=== PATIENT | female | born 1990 | race Caucasian/White ===

== ENCOUNTER → 2017-05-07 | Outpatient (CLI) | payer OTHER ==
[~2017-05-07] MED LIST: BIRTH CONTROL; LAMO100 PO; Xanax0.5 MG
[2017-05-07 14:32] LABS: Specimen Source CERVIX
[2017-05-08 09:22] LABS: Source Cervix
[2017-05-09 12:17] LABS: HPV Genotype 16 Not Detected (NOTDET); HPV Genotype 18 Not Detected (NOTDET)
[2017-05-16 19:05] LABS: HPV High Risk Other Detected (NOTDET)
== END ==
LOC: OLS 14:25
PROVIDERS: Nurse Practitioner Women's Health
DX: Z11.3 Encounter for screening for infections with a predominantly sexual mode of transmission (principal); R36.9 Urethral discharge, unspecified; Z20.2 Contact with and (suspected) exposure to infections with a predominantly sexual mode of transmission
CPT/HCPCS: 87491; 87591; 87624; G0123

== ENCOUNTER → 2018-05-08 | Outpatient (CLI) | payer OTHER ==
[2018-05-10 15:06] LABS: HPV 16 Negative (Negative); HPV 18 Negative (Negative); HPV OTHER HR TYPES Positive (Negative)
== END ==
LOC: LAB SHORT 17:33 → LAB 17:33
PROVIDERS: Nurse Practitioner Women's Health
DX: Z12.4 Encounter for screening for malignant neoplasm of cervix (principal)
CPT/HCPCS: 87624; 87625; G0123

== ENCOUNTER → 2018-09-18 | Outpatient (CLI) | payer OTHER | END | disposition home or self-care (01) | LOC: LAB 16:25 → LAB SHORT 16:25 | DX: N89.8 Other specified noninflammatory disorders of vagina (principal) | CPT/HCPCS: 87070; 87205 ==

== ENCOUNTER → 2018-09-30 | Outpatient (CLI) | payer OTHER | END | disposition home or self-care (01) | LOC: LAB SHORT 17:15 → LAB 17:15 | DX: N89.8 Other specified noninflammatory disorders of vagina (principal) | CPT/HCPCS: 87070; 87147; 87205 ==

== ENCOUNTER → 2018-10-04 | Outpatient (CLI) | payer OTHER | END | disposition home or self-care (01) | LOC: LAB SHORT 16:41 → LAB 16:41 | DX: L08.9 Local infection of the skin and subcutaneous tissue, unspecified (principal); K13.0 Diseases of lips | CPT/HCPCS: 87070; 87077; 87186; 87205 ==

== ENCOUNTER → 2018-10-15 | Outpatient (CLI) | payer OTHER ==
[2018-10-16 07:13] LABS: Candida species (DNA Probe) Negative (NEGATIVE); G. vaginalis (DNA Probe) Negative (NEGATIVE); T. vaginalis (DNA Probe) Negative (NEGATIVE)
== END | disposition home or self-care (01) ==
LOC: LAB SHORT 17:36 → LAB 17:36
PROVIDERS: Nurse Practitioner Women's Health
DX: N94.6 Dysmenorrhea, unspecified (principal); N89.8 Other specified noninflammatory disorders of vagina; R87.810 Cervical high risk human papillomavirus (HPV) DNA test positive
CPT/HCPCS: 87480; 87510; 87660

== ENCOUNTER → 2020-05-26 | Outpatient (CLI) | payer OTHER ==
[~2020-05-26] MED LIST changes: +ACYCLOVIR400 MG PO; +FOLI1 PO; +LAMOTRIGINE200 MG PO; +MULTI-VITAMIN1 EAC2 PO; +Nitrofurantoin100 M1 PO; +PRENATAL VITAMIN PO; +QUET100 PO; +VALA500 PO; +XULANE PATCH1 EAC1 TD
[2020-06-01 15:11] LABS: HPV 16 Negative (Negative); HPV 18 Negative (Negative); HPV OTHER HR TYPES Positive (Negative)
== END ==
LOC: LAB SHORT 19:01 → LAB 19:01
PROVIDERS: Obstetrics & Gynecology
DX: Z01.419 Encounter for gynecological examination (general) (routine) without abnormal findings (principal)
CPT/HCPCS: 87624; 87625; G0123

== ENCOUNTER → 2020-06-08 | Outpatient (CLI) | payer OTHER | END | disposition home or self-care (01) | LOC: PLD 07:55 → LAB SHORT 07:55 | DX: N87.9 Dysplasia of cervix uteri, unspecified (principal) | CPT/HCPCS: 88305 ==

== ENCOUNTER 2020-06-21 06:33 | Day surgery (SDC) | payer OTHER ==
[~2020-06-21] VITALS: Ht 157.5 cm; Wt 57.5 kg
[~2020-06-21 06:33] MED LIST changes: -ACYCLOVIR400 MG PO; -LAMOTRIGINE200 MG PO; -MULTI-VITAMIN1 EAC2 PO; -Nitrofurantoin100 M1 PO; -XULANE PATCH1 EAC1 TD
[2020-06-21] MEDS ORDERED: MULTI-VITAMIN1 EAC2 PO (07:14)
[2020-06-21] MEDS ORDERED: XULANE PATCH1 EAC1 TD (07:14)
--- NOTE | 2020-06-21 07:38 | NUR ---
PT AMBULATES TO DAY SURGERY c STEADY GAIT. URINE SAMPLE PROVIDED, PREG NEG. History, Chart, Medications and Allergies reviewed before start of procedure. Lungs clear T/O to Auscultation. Patient confirms NPO status and agrees with scheduled surgery. Patient reports completing Chlorhexadine shower X2 prior to admission to hospital.
--- NOTE | 2020-06-21 12:03 | NUR ---
Patient up to Ambulate independently. Gait steady. Discharge instructions reviewed with patient. Patient verbalizes understanding. Copy given to patient to take home. History, Chart, Medications and Allergies reviewed before start of procedure.Patient States Post-Procedure ride home has been arranged. Discharged via wheelchair to private car for ride home.
== END 2020-06-21 12:30 | disposition home or self-care (01) ==
LOC: ORSCMMR 06:33 → ORD 08:30 → ORSCMMR 12:30
PROVIDERS: Obstetrics & Gynecology
PROC: 0UT64ZZ Resection of Left Fallopian Tube, Percutaneous Endoscopic Approach (ICD-10-PCS; principal; 2020-06-21 08:30)
PROC: 0U5F4ZZ Destruction of Cul-de-sac, Percutaneous Endoscopic Approach (ICD-10-PCS; principal; 2020-06-21 08:30)
PROC: 0UT14ZZ Resection of Left Ovary, Percutaneous Endoscopic Approach (ICD-10-PCS; principal; 2020-06-21 08:30)
DX: D27.1 Benign neoplasm of left ovary (principal); N80.1 Endometriosis of ovary; I10 Essential (primary) hypertension; K21.9 Gastro-esophageal reflux disease without esophagitis; Z79.899 Other long term (current) drug therapy
CPT/HCPCS: 88305; A9270; J0171; J1100; J1885; J2250; J2405; J2704; J2710; J3010; J7120

== ENCOUNTER → 2020-09-20 | Outpatient (CLI) | payer OTHER ==
[~2020-09-20] MED LIST changes: +ACYCLOVIR400 MG PO; +LAMOTRIGINE200 MG PO; +MULTI-VITAMIN1 EAC2 PO; +Nitrofurantoin100 M1 PO; +XULANE PATCH1 EAC1 TD
== END ==
LOC: LAB SHORT 12:21 → LAB 12:21
DX: R31.9 Hematuria, unspecified (principal)
CPT/HCPCS: 87077; 87086; 87186

== ENCOUNTER 2020-09-24 16:18 | Emergency (ER) | payer OTHER ==
[~2020-09-24] VITALS: Ht 157.5 cm; Wt 57.6 kg
[~2020-09-24 16:18] MED LIST changes: -ACYCLOVIR400 MG PO; -LAMOTRIGINE200 MG PO; -Nitrofurantoin100 M1 PO
[2020-09-24 17:27] LABS: BASOPHILS ABSOLUTE AUTO 0.01 K/mm3 (0.00-0.23); BASOPHILS PERCENT AUTO 0 % (0-2); EOSINOPHILS PERCENT AUTO 0 % (0-6); Hematocrit 40.1 % (33.0-51.0); Hemoglobin 13.7 g/dL (11.5-16.0); IMMATURE GRAN ABSOLUTE AUTO 0.02 K/mm3 (0.00-0.10); IMMATURE GRAN PERCENT AUTO 0 % (0-1); LYMPHOCYTES PERCENT AUTO 25 % (21-46); MONOCYTES ABSOLUTE AUTO 0.47 K/mm3 (0.16-1.47); MONOCYTES PERCENT AUTO 6 % (4-13); Mean Corpuscular HGB 31.4 pg (26.0-34.0); Mean Corpuscular HGB Conc 34.2 g/dL (31.5-36.5); Mean Corpuscular Volume 92 fL (80-100); Mean Platelet Volume 10.3 fL (9.1-12.4); NEUTROPHILS ABSOLUTE AUTO 5.58 K/mm3 (1.96-9.15); NEUTROPHILS PERCENT AUTO 69 % (41-73); Platelet Count 309 K/mm3 (150-400); RDW Standard Deviation 37.7 fL (35.1-46.3); Red Blood Cell Count 4.36 M/mm3 (3.80-5.20); White Blood Cell Count 8.08 K/mm3 (4.00-11.30)
[2020-09-24 17:51] LABS: Alanine Aminotransfer (ALT/SGP 18 U/L (12-78); Alk Phos 60 U/L (50-136); Anion Gap 5 mmol/L (6-16); Aspartate Aminotrans (AST/SGOT 12 U/L (12-37); Bilirubin, Total 0.5 mg/dL (0.1-1.0); Blood Urea Nitrogen 10 mg/dL (8-24); Bun/Creatinine Ratio 12.6 (12.0-20.0); CO2, Blood 27 mmol/L (21-32); Calcium, Blood 9.2 mg/dL (8.5-10.1); Chloride, Blood 107 mmol/L (98-108); Globulin, Blood 4.1 g/dL (2.2-4.0); Glomerular Filtration Rate >60 (60-); Glucose, Blood 82 mg/dL (70-99); Potassium, Blood 3.8 mmol/L (3.5-5.5); Sodium, Blood 139 mmol/L (136-145); Total Protein, Blood 8.1 g/dL (6.4-8.2)
[2020-09-24] MEDS ORDERED: ACYCLOVIR400 MG PO (19:11)
[2020-09-24] MEDS ORDERED: LAMOTRIGINE200 MG PO (19:11)
[2020-09-24] MEDS ORDERED: Nitrofurantoin100 M1 PO (19:11)
[2020-09-24 19:13] LABS: Source, Urine Clean Catch
[2020-09-24 19:27] LABS: Appearance, Urine Cloudy (Clear); Bilirubin, Urine Neg (Neg); Blood, Urine Neg (Neg); Color, Urine Yellow (P-Yellow); Glucose Qualitative, Urine Neg (Neg); Ketones, Urine 4+ (Neg); Leukocyte Esterase, Urine 1+ (Neg); Nitrite, Urine Neg (Neg); Protein, Urine 1+ (Neg); Urobilinogen, Urine NORM (Normal)
[2020-09-24 19:52] LABS: Bacteria Many /hpf; Red Blood Cells, Urine Not Seen /hpf (0-2); Squamous Epithelial Cells Many /hpf (Few)
== END 2020-09-24 20:44 | disposition home or self-care (01) ==
LOC: ER 16:18
PROVIDERS: Physician Assistant
DX: R10.9 Unspecified abdominal pain (principal); F17.200 Nicotine dependence, unspecified, uncomplicated; Z79.899 Other long term (current) drug therapy
CPT/HCPCS: 36415; 80053; 81001; 83690; 84702; 85025; 87086; 99284

== ENCOUNTER 2021-06-15 13:19 | Day surgery (SDC) | payer OTHER ==
[~2021-06-15] VITALS: Ht 157.5 cm; Wt 53.8 kg
[~2021-06-15 13:19] MED LIST changes: +ACYCLOVIR400 MG PO; +LAMOTRIGINE200 MG PO; +Nitrofurantoin100 M1 PO
[2021-06-15] MEDS ORDERED: OMEP20ER (14:02)
[2021-06-15] MEDS ORDERED: MULTI-VITAMIN1 EAC2 (14:03)
[2021-06-15] MEDS ORDERED: LINZESS145 MCG (14:03)
[2021-06-15] MEDS ORDERED: BRINTELLIX10 MG (14:04)
--- NOTE | 2021-06-15 16:00 | NUR ---
06/15/21 1559 Estefany Gleason PROCEDURE WAS CANCELLED BY [facility] COMPUTER SUPPORT ANALYST DUE TO PT REPORTING TO PRE-OP NURSE THAT SHE DID NOT FEEL SAFE AT HOME WITH [employer] WHO IS ALSO HER TRANSPORTATION HOME. [facility] COMPUTER SUPPORT ANALYST SAYS THAT PT HAS NOTIIFIED POLICE AND IS WAITING FOR A RETURN CALL WHERE THEY WILL BE SENDING OVER AN OFFICER TO INFORM THE CAREGIVER THAT HE IS TO NOT GO BACK TO THE RESIDENCE. THE COMPUTER SUPPORT ANALYST STATES THAT SHE WILL RETURN AND TRANSPORT THE PATIENT HOME INSURE SHE IS SAFE INSIDE. AT THIS TIME DR SLATER IN NOTIFIED AND HE GOES IN TO SEE THE PATIENT AND INSTRUCTS HER TO CALL THE OFFICE TO RESCHEDULE.
== END 2021-06-15 17:20 | disposition home or self-care (01) ==
LOC: ORSCSDS 13:19
DX: K21.9 Gastro-esophageal reflux disease without esophagitis (principal); K59.04 Chronic idiopathic constipation; Z53.9 Procedure and treatment not carried out, unspecified reason
CPT/HCPCS: J2704; J7120

== ENCOUNTER 2021-07-01 08:23 | Day surgery (SDC) | payer OTHER ==
[~2021-07-01] VITALS: Ht 157.5 cm; Wt 54.8 kg
[~2021-07-01 08:23] MED LIST changes: +BRINTELLIX10 MG; +LINZESS145 MCG; +MULTI-VITAMIN1 EAC2; +OMEP20ER
[2021-07-01] MEDS ORDERED: FISH OIL GUMMI1 EAC1 PO (09:34)
== END 2021-07-01 10:48 | disposition home or self-care (01) ==
LOC: ORSCSDS 08:23
PROVIDERS: Internal Medicine Gastroenterology
PROC: 0DB68ZX Excision of Stomach, Via Natural or Artificial Opening Endoscopic, Diagnostic (ICD-10-PCS; principal; 2021-07-01 09:45)
PROC: 0DB98ZX Excision of Duodenum, Via Natural or Artificial Opening Endoscopic, Diagnostic (ICD-10-PCS; principal; 2021-07-01 09:45)
PROC: 0DB58ZX Excision of Esophagus, Via Natural or Artificial Opening Endoscopic, Diagnostic (ICD-10-PCS; principal; 2021-07-01 09:45)
DX: K21.9 Gastro-esophageal reflux disease without esophagitis (principal); K58.1 Irritable bowel syndrome with constipation; I10 Essential (primary) hypertension; Z79.899 Other long term (current) drug therapy
CPT/HCPCS: 88305; 88342; J2704; J7120

== ENCOUNTER → 2021-07-26 | Outpatient (CLI) | payer OTHER ==
[~2021-07-26] MED LIST changes: +FISH OIL GUMMI1 EAC1 PO
[2021-07-27 14:11] LABS: HPV 16 Negative (Negative); HPV 18 Negative (Negative); HPV OTHER HR TYPES Positive (Negative)
== END | disposition home or self-care (01) ==
LOC: LAB SHORT 14:18 → LAB 14:18
PROVIDERS: Advanced Practice Midwife
DX: Z01.419 Encounter for gynecological examination (general) (routine) without abnormal findings (principal)
CPT/HCPCS: 87624; G0123

== ENCOUNTER → 2021-07-28 | Outpatient (CLI) | payer OTHER | LOC: LAB SHORT 18:23 | PROVIDERS: Internal Medicine Hematology & Oncology | DX: D50.9 Iron deficiency anemia, unspecified (principal); E53.8 Deficiency of other specified B group vitamins | CPT/HCPCS: 82607; 82728; 82746; 83540; 83550 ==

== ENCOUNTER → 2021-08-19 | Outpatient (CLI) | payer OTHER | END | disposition home or self-care (01) | LOC: PLD 07:47 → LAB SHORT 07:47 → LAB 07:47 | DX: C55 Malignant neoplasm of uterus, part unspecified (principal) | CPT/HCPCS: 88305 ==

== ENCOUNTER 2022-02-21 11:11 | Emergency (ER) | payer OTHER ==
[~2022-02-21] VITALS: Ht 157.5 cm; Wt 50.4 kg
[2022-02-21] MEDS ORDERED: PRAZOSIN HCL1 M2 PO (11:30)
[2022-02-21 11:32] LABS: BASOPHILS PERCENT AUTO 0 % (0-2); EOSINOPHILS ABSOLUTE AUTO 0.03 K/mm3 (0.00-0.68); EOSINOPHILS PERCENT AUTO 1 % (0-6); Hematocrit 43.6 % (33.0-51.0); IMMATURE GRAN ABSOLUTE AUTO 0.01 K/mm3 (0.00-0.10); IMMATURE GRAN PERCENT AUTO 0 % (0-1); LYMPHOCYTES ABSOLUTE AUTO 2.31 K/mm3 (0.84-5.20); LYMPHOCYTES PERCENT AUTO 39 % (21-46); MONOCYTES ABSOLUTE AUTO 0.39 K/mm3 (0.16-1.47); MONOCYTES PERCENT AUTO 7 % (4-13); Mean Corpuscular HGB 31.3 pg (26.0-34.0); Mean Corpuscular HGB Conc 34.4 g/dL (31.5-36.5); Mean Corpuscular Volume 91 fL (80-100); Mean Platelet Volume 10.5 fL (9.1-12.4); NEUTROPHILS ABSOLUTE AUTO 3.26 K/mm3 (1.96-9.15); NEUTROPHILS PERCENT AUTO 54 % (41-73); Platelet Count 332 K/mm3 (150-400); RDW Standard Deviation 37.6 fL (35.1-46.3); Red Blood Cell Count 4.79 M/mm3 (3.80-5.20)
[2022-02-21 11:53] LABS: Albumin, Blood 4.1 g/dL (3.4-5.0); Albumin/Globulin Ratio 0.9 (0.8-1.8); Bilirubin, Total 0.4 mg/dL (0.1-1.0); Bun/Creatinine Ratio 11.3 (12.0-20.0); Calcium, Blood 9.5 mg/dL (8.5-10.1); Creatinine, Blood 0.8 mg/dL (0.40-1.00); Globulin, Blood 4.4 g/dL (2.2-4.0); Potassium, Blood 3.9 mmol/L (3.5-5.5); Total Protein, Blood 8.5 g/dL (6.4-8.2)
[2022-02-21 12:22] LABS: Source, Urine Clean Catch
[2022-02-21 12:36] LABS: Appearance, Urine Cloudy (Clear); Bilirubin, Urine Neg (Neg); Blood, Urine Neg (Neg); Color, Urine Yellow (P-Yellow); Glucose Qualitative, Urine Neg (Neg); Ketones, Urine Neg (Neg); Leukocyte Esterase, Urine 1+ (Neg); Nitrite, Urine Neg (Neg); Protein, Urine 1+ (Neg); Specific Gravity, Urine 1.015 (1.003-1.022); Urobilinogen, Urine NORM (Normal)
[2022-02-21 13:00] LABS: White Blood Cells, Urine 0-2 /hpf (0-5)
[2022-02-21 13:01] LABS: Bacteria Many /hpf; Red Blood Cells, Urine 0-2 /hpf (0-2); Squamous Epithelial Cells Many /hpf (Few)
[2022-02-21 13:02] LABS: Mucus Light (0-Heavy)
[2022-02-21] MEDS ORDERED: DICY20 PO (13:06)
== END 2022-02-21 13:19 | disposition home or self-care (01) ==
LOC: ER 11:11
PROVIDERS: Emergency Medicine
DX: R10.9 Unspecified abdominal pain (principal); K29.70 Gastritis, unspecified, without bleeding; R11.2 Nausea with vomiting, unspecified; R19.7 Diarrhea, unspecified; K21.9 Gastro-esophageal reflux disease without esophagitis; F17.200 Nicotine dependence, unspecified, uncomplicated; Z88.8 Allergy status to other drugs, medicaments and biological substances; Z79.899 Other long term (current) drug therapy
CPT/HCPCS: 36415; 80053; 81001; 81025; 83690; 84703; 85025; A9270; J2405

== ENCOUNTER 2022-04-16 09:16 | Emergency (ER) | payer OTHER ==
[~2022-04-16] VITALS: Ht 157.5 cm; Wt 49.4 kg
[~2022-04-16 09:16] MED LIST changes: +DICY20 PO; +PRAZOSIN HCL1 M2 PO
[2022-04-16 10:09] LABS: BASOPHILS PERCENT AUTO 0 % (0-2); EOSINOPHILS ABSOLUTE AUTO 0.01 K/mm3 (0.00-0.68); EOSINOPHILS PERCENT AUTO 0 % (0-6); Hematocrit 35.1 % (33.0-51.0); Hemoglobin 12.2 g/dL (11.5-16.0); IMMATURE GRAN ABSOLUTE AUTO 0.01 K/mm3 (0.00-0.10); IMMATURE GRAN PERCENT AUTO 0 % (0-1); LYMPHOCYTES ABSOLUTE AUTO 1.43 K/mm3 (0.84-5.20); LYMPHOCYTES PERCENT AUTO 31 % (21-46); MONOCYTES ABSOLUTE AUTO 0.37 K/mm3 (0.16-1.47); MONOCYTES PERCENT AUTO 8 % (4-13); Mean Corpuscular HGB 31.8 pg (26.0-34.0); Mean Corpuscular HGB Conc 34.8 g/dL (31.5-36.5); Mean Corpuscular Volume 91 fL (80-100); Mean Platelet Volume 9.9 fL (9.1-12.4); NEUTROPHILS ABSOLUTE AUTO 2.81 K/mm3 (1.96-9.15); NEUTROPHILS PERCENT AUTO 61 % (41-73); Platelet Count 284 K/mm3 (150-400); RDW Coefficient Variation 11.4 % (11.7-14.2); RDW Standard Deviation 38.4 fL (35.1-46.3); Red Blood Cell Count 3.84 M/mm3 (3.80-5.20); White Blood Cell Count 4.63 K/mm3 (4.00-11.30)
[2022-04-16 10:20] LABS: Albumin, Blood 3.4 g/dL (3.4-5.0); Albumin/Globulin Ratio 0.9 (0.8-1.8); Bilirubin, Total 0.3 mg/dL (0.1-1.0); Bun/Creatinine Ratio 13.8 (12.0-20.0); Calcium, Blood 8.5 mg/dL (8.5-10.1); Creatinine, Blood 0.65 mg/dL (0.40-1.00); Globulin, Blood 3.6 g/dL (2.2-4.0); Potassium, Blood 3.6 mmol/L (3.5-5.5)
[2022-04-16] MEDS ORDERED: ONDA4ODT MM (10:46)
== END 2022-04-16 11:43 | disposition home or self-care (01) ==
LOC: ER 09:16
PROVIDERS: Physician Assistant
DX: K21.9 Gastro-esophageal reflux disease without esophagitis (principal); R10.12 Left upper quadrant pain; R20.8 Other disturbances of skin sensation; F17.200 Nicotine dependence, unspecified, uncomplicated; Z88.8 Allergy status to other drugs, medicaments and biological substances; Z79.899 Other long term (current) drug therapy
CPT/HCPCS: 80053; 83690; 85025; A9270; J1885

== ENCOUNTER → 2022-08-29 | Outpatient (CLI) | payer OTHER ==
[~2022-08-29] MED LIST changes: +ONDA4ODT MM
[2022-08-31 17:07] LABS: HPV 16 Negative (Negative); HPV 18 Negative (Negative); HPV OTHER HR TYPES Positive (Negative)
== END | disposition home or self-care (01) ==
LOC: LAB SHORT 11:26 → LAB 11:26
PROVIDERS: Obstetrics & Gynecology
DX: Z01.419 Encounter for gynecological examination (general) (routine) without abnormal findings (principal)
CPT/HCPCS: 87624; G0145

== ENCOUNTER 2022-09-22 14:01 | Emergency (ER) | payer OTHER ==
[~2022-09-22] VITALS: Ht 157.5 cm; Wt 48.1 kg
[2022-09-22 15:16] VITALS: BP 124/94
== END 2022-09-22 16:13 | disposition home or self-care (01) ==
LOC: ER 14:01
DX: J02.9 Acute pharyngitis, unspecified (principal); Z88.8 Allergy status to other drugs, medicaments and biological substances; Z87.891 Personal history of nicotine dependence
CPT/HCPCS: A9270; J1100

== ENCOUNTER → 2022-11-22 | Outpatient (CLI) | payer OTHER | LOC: LAB 16:13 | DX: Z11.3 Encounter for screening for infections with a predominantly sexual mode of transmission (principal) ==

== ENCOUNTER → 2023-08-23 | Outpatient (CLI) | payer OTHER | LOC: LAB SHORT 18:37 → LAB 18:37 | DX: N39.0 Urinary tract infection, site not specified (principal) ==

== ENCOUNTER → 2023-09-14 | Outpatient (CLI) | payer OTHER ==
[2023-09-19 10:43] LABS: HPV HIGH RISK BY TMA Not Detected; HPV SOURCE Cervical
== END ==
LOC: LAB 19:03 → LAB SHORT 19:03
PROVIDERS: Advanced Practice Midwife
DX: Z01.419 Encounter for gynecological examination (general) (routine) without abnormal findings (principal)
CPT/HCPCS: 87624; G0123

== ENCOUNTER 2023-11-18 14:36 | Emergency (ER) | payer OTHER ==
[~2023-11-18] VITALS: Ht 157.5 cm; Wt 54.4 kg
[2023-11-18 14:50] VITALS: BP 135/100
[2023-11-18] MEDS ORDERED: Hydroxyzine HCl25 MG PO (15:05)
[2023-11-18] MEDS ORDERED: HyDROXyzine HCl 25 MG Tab PO ONE (15:05)
== END 2023-11-18 15:30 | disposition home or self-care (01) ==
LOC: ER 14:36
DX: F41.0 Panic disorder [episodic paroxysmal anxiety] (principal); Z87.891 Personal history of nicotine dependence; Z79.899 Other long term (current) drug therapy; Z88.8 Allergy status to other drugs, medicaments and biological substances
CPT/HCPCS: A9270

== ENCOUNTER → 2023-12-14 | Outpatient (CLI) | payer OTHER ==
[~2023-12-14] MED LIST changes: +Hydroxyzine HCl25 MG PO
[2023-12-14 23:34] LABS: Adenovirus F 40/41 Not Detected (NOT DETECT); Astrovirus Not Detected (NOT DETECT); Campylobacter Sp Not Detected (NOT DETECT); Cryptosporidium Not Detected (NOT DETECT); Cyclospora Cayetanensis Not Detected (NOT DETECT); E. Coli O157 Not Detected (NOT DETECT); Entamoeba Histolytica Not Detected (NOT DETECT); Enteroaggregative E. coli-EAEC Not Detected (NOT DETECT); Enteropathogenic E. coli-EPEC Not Detected (NOT DETECT); Enterotoxigenic E. coli-ETEC Not Detected (NOT DETECT); Giardia Lamblia Not Detected (NOT DETECT); Norovirus GI/GII Not Detected (NOT DETECT); Plesiomonas Shigelloides Not Detected (NOT DETECT); Rotavirus A Not Detected (NOT DETECT); Salmonella Sp Not Detected (NOT DETECT); Sapovirus Not Detected (NOT DETECT); Shiga Toxin-prod E. coli-STEC Not Detected (NOT DETECT); Shigella/Enteroin E. coli-EIEC Not Detected (NOT DETECT); Vibrio Cholerae Not Detected (NOT DETECT); Vibrio Sp Not Detected (NOT DETECT); Yersinia Enterocolitica Not Detected (NOT DETECT)
== END ==
LOC: LAB SHORT 13:15 → LAB 13:15
PROVIDERS: Family Medicine
DX: K58.2 Mixed irritable bowel syndrome (principal)
CPT/HCPCS: 87507

== ENCOUNTER → 2024-03-05 | Outpatient (CLI) | payer OTHER | LOC: LAB SHORT 11:10 → LAB 11:10 | DX: R31.9 Hematuria, unspecified (principal) | CPT/HCPCS: 87086 ==

== ENCOUNTER → 2024-08-20 | Outpatient (CLI) | payer OTHER | LOC: LAB 15:52 → LAB SHORT 15:52 | DX: R30.0 Dysuria (principal) | CPT/HCPCS: 87086 ==

== ENCOUNTER → 2024-09-15 | Outpatient (CLI) | payer OTHER ==
[2024-09-23 11:46] LABS: HPV HIGH RISK BY TMA Not Detected; HPV SOURCE Cervical/Vag
== END ==
LOC: LAB SHORT 13:48 → LAB 13:48
PROVIDERS: Obstetrics & Gynecology
DX: Z01.419 Encounter for gynecological examination (general) (routine) without abnormal findings (principal)
CPT/HCPCS: 87624; G0123